=== PATIENT | male | born 1985 | race Caucasian/White ===

== ENCOUNTER 2025-06-01 16:54 | Inpatient (IN) | payer OTHER ==
[~2025-06-01] VITALS: Ht 188 cm; Wt 101.0 kg
[2025-06-01 18:31] LABS: PLATELET COUNT (AUTO) 134 K/uL (150-450); RED BLOOD CELL COUNT(AUTO) 3.64 MIL/uL (4.50-5.90); RED CELL DISTRIBUTION WIDTH 14.7 % (11.5-14.5); WHITE BLOOD COUNT (AUTO) 10.1 K/uL (4.5-11.0)
[2025-06-01 18:44] LABS: CALCIUM, TOTAL 8.4 mg/dL (8.8-10.5); CREATININE 1.01 mg/dL (0.60-1.30); GLOMERULAR FILTR. RATE CALC > 60 mL/min (>60); GLUCOSE,RANDOM 97 mg/dL (70-110); SODIUM SERUM 143 mmol/L (136-145); UREA NITROGEN, BLOOD 24 mg/dL (7-18)
[2025-06-01] MEDS ORDERED: 0.9% SODIUM CHLORIDE 10 ML SYRINGE IVP PRN (19:15)
[2025-06-01] MEDS: SODIUM CHLORIDE 0.9% 1,800 ML IV ONE (19:20)
[2025-06-01 19:45] LABS: LACTIC ACID 0.5 mmol/L (0.4-2.0)
[2025-06-01 19:52] LABS: TROPONIN I-HIGH SENSITIVITY 4 ng/L (<76)
[2025-06-01] MEDS ORDERED: ONDANSETRON HCL 4 MG/2 ML VIAL IVP PRN (20:00)
[2025-06-01] MEDS ORDERED: ACETAMINOPHEN 325 MG TABLET PO PRN (20:00)
[2025-06-01] MEDS: VANCOMYCIN 1.25 GM/WATER(PEG) 250 ML IV ONE (20:10)
[2025-06-01] MEDS: DOCUSATE SODIUM 100 MG CAPSULE PO SCH (20:11)
[2025-06-01] MEDS: RINGERS SOLUTION,LACTATED 1,000 ML IV SCH (20:11)
[2025-06-01] MEDS: CLINDAMYCIN 600 MG/D5% WATER 50 ML IV ONE (22:59)
[2025-06-01] MEDS: HEPARIN SODIUM,PORCINE 5,000 UNITS/ML VIAL SQ SCH (22:59)
[2025-06-02 04:31] VITALS: BP 103/67; PULSE 60; RESP 18; TEMP 98.1; O2SAT 99
[2025-06-02 06:34] LABS: PLATELET COUNT (AUTO) 107 K/uL (150-450); RED BLOOD CELL COUNT(AUTO) 3.12 MIL/uL (4.50-5.90); RED CELL DISTRIBUTION WIDTH 14.7 % (11.5-14.5); WHITE BLOOD COUNT (AUTO) 6.8 K/uL (4.5-11.0)
[2025-06-02 07:16] LABS: CALCIUM, TOTAL 7.9 mg/dL (8.8-10.5); CREATININE 0.83 mg/dL (0.60-1.30); GLOMERULAR FILTR. RATE CALC > 60 mL/min (>60); GLUCOSE,RANDOM 78 mg/dL (70-110); SODIUM SERUM 140 mmol/L (136-145); UREA NITROGEN, BLOOD 18 mg/dL (7-18)
[2025-06-02] MEDS: VANCOMYCIN 1GM/WATER(PEG/NADA) 200 ML IV SCH (08:18)
[2025-06-02 20:38] VITALS: BP 110/69; PULSE 57; RESP 18; TEMP 98.4; O2SAT 98
[2025-06-03 04:50] VITALS: BP 115/73; PULSE 53; RESP 18; TEMP 97.7; O2SAT 99
[2025-06-03 06:25] LABS: PLATELET COUNT (AUTO) 134 K/uL (150-450); RED BLOOD CELL COUNT(AUTO) 3.26 MIL/uL (4.50-5.90); RED CELL DISTRIBUTION WIDTH 14.6 % (11.5-14.5); WHITE BLOOD COUNT (AUTO) 7.6 K/uL (4.5-11.0)
[2025-06-03 06:46] LABS: CALCIUM, TOTAL 8.9 mg/dL (8.8-10.5); CREATININE 1.10 mg/dL (0.60-1.30); GLOMERULAR FILTR. RATE CALC > 60 mL/min (>60); GLUCOSE,RANDOM 89 mg/dL (70-110); SODIUM SERUM 139 mmol/L (136-145); UREA NITROGEN, BLOOD 17 mg/dL (7-18)
[2025-06-03 08:09] VITALS: BP 128/72; PULSE 53; RESP 18; TEMP 98.1; O2SAT 100
[2025-06-03] MEDS ORDERED: SODIUM CHLORIDE 0.9% 500 ML IV ONE (09:08)
[2025-06-03] MEDS: ACETAMINOPHEN 500 MG TABLET PO SCH (15:48)
[2025-06-03 21:01] VITALS: BP 110/58; PULSE 63; RESP 18; TEMP 98.2; O2SAT 98
[2025-06-04 05:28] VITALS: BP 110/58; PULSE 63; RESP 18; TEMP 98.2; O2SAT 97
[2025-06-04 07:34] LABS: CALCIUM, TOTAL 8.7 mg/dL (8.8-10.5); CREATININE 0.99 mg/dL (0.60-1.30); GLOMERULAR FILTR. RATE CALC > 60 mL/min (>60); GLUCOSE,RANDOM 87 mg/dL (70-110); SODIUM SERUM 141 mmol/L (136-145); UREA NITROGEN, BLOOD 17 mg/dL (7-18)
[2025-06-04 08:29] VITALS: BP 118/64; PULSE 68; RESP 18; TEMP 98.1; O2SAT 98
[2025-06-04] MEDS: RINGERS SOLUTION,LACTATED 1,000 ML IV ONE (10:26)
[2025-06-04] MEDS ORDERED: ACET-3385 PO (11:46)
[2025-06-04] MEDS ORDERED: SULF-261 PO ×3 (11:48→11:51)
[2025-06-04] MEDS: MAGNESIUM HYDROXIDE SUSPENSION 30 ML UDCUP PO ONE (12:18)
[2025-06-04] MEDS: POLYETHYLENE GLYCOL 3350 17 GM PACKET PO ONE (12:18)
== END 2025-06-04 14:24 | DRG 602 ==
LOC: EMS 16:54 → EDH 19:59 → 6S 21:12
PROVIDERS: ADMIT Internal Medicine; ATTEND Internal Medicine
DX: L03.115 Cellulitis of right lower limb (principal); D65 Disseminated intravascular coagulation [defibrination syndrome]; D64.9 Anemia, unspecified; I50.9 Heart failure, unspecified
CPT/HCPCS: 71045; 80048; 80202; 83605; 83735; 84145; 84484; 84550; 85025; 85379; 85610; 87040; 93005; 93971; 96361; 96365; 97161; 97530; 99291; J1644; J3490; J7040; J7120; 36415-L1; 36415-TC